=== PATIENT | female | born 1995 | race African-American/Black ===

== ENCOUNTER 2017-06-11 11:41 | Emergency (ER) | payer MEDICAID ==
[~2017-06-11] VITALS: Ht 157.5 cm; Wt 63.0 kg
[2017-06-11 15:30] VITALS: BP 116/66
[2017-06-11 15:53] LABS: CLARITY URINE CLOUDY (CLEAR); COLOR URINE YELLOW (YELLOW); KETONES URINE NEGATIVE (NEGATIVE); LEUKOCYTE ESTERASE URINE NEGATIVE (NEGATIVE); NITRITE URINE NEGATIVE (NEGATIVE); OCCULT BLOOD URINE NEGATIVE (NEGATIVE); PROTEIN URINE NEGATIVE (NEGATIVE); SPECIFIC GRAVITY URINE 1.024 (1.005-1.030); UROBILINOGEN URINE 0.2 E.U./dL (0.2-1.0)
== END 2017-06-11 18:39 | disposition left against medical advice (07) ==
LOC: ER 12:35
DX: R10.2 Pelvic and perineal pain (principal); L73.9 Follicular disorder, unspecified; N89.8 Other specified noninflammatory disorders of vagina; Z72.0 Tobacco use
CPT/HCPCS: 81001; 81025; 99283

== ENCOUNTER 2017-08-16 23:02 | Emergency (ER) | payer MEDICAID ==
[~2017-08-16] VITALS: Ht 157.5 cm; Wt 67.0 kg
[2017-08-17] MEDS ORDERED: KETOROLAC 15MG/ML VIAL IM ONE
[2017-08-17] MEDS ORDERED: ACETAMINOPHEN 500MG TABLET PO ONE
[2017-08-17 00:18] LABS: CLARITY URINE CLOUDY (CLEAR); COLOR URINE YELLOW (YELLOW); KETONES URINE NEGATIVE (NEGATIVE); LEUKOCYTE ESTERASE URINE TRACE (NEGATIVE); NITRITE URINE NEGATIVE (NEGATIVE); OCCULT BLOOD URINE NEGATIVE (NEGATIVE); PH URINE 6.5 (4.5-8.0); PROTEIN URINE NEGATIVE (NEGATIVE); SPECIFIC GRAVITY URINE 1.009 (1.005-1.030); UROBILINOGEN URINE 0.2 E.U./dL (0.2-1.0)
[2017-08-17 00:33] LABS: *AMPHETAMINES SCREEN URINE NEGATIVE (NEGATIVE); *BARBITURATES SCREEN URINE NEGATIVE (NEGATIVE); *BENZODIAZEPINES SCREEN URINE NEGATIVE (NEGATIVE); *COCAINE SCREEN URINE NEGATIVE (NEGATIVE); METHADONE URINE SCREEN NEGATIVE (NEGATIVE)
[2017-08-17 00:42] LABS: OPIATES URINE SCREEN NEGATIVE (NEGATIVE); PHENCYCLIDINE URINE SCREEN NEGATIVE (NEGATIVE)
[2017-08-17 00:46] LABS: CANNABINOID URINE SCREEN PRESUMTIVE POSITIVE (NEGATIVE)
[2017-08-17 00:55] LABS: BASOPHILS % 0.9 % (0.0-2.0); EOSINOPHILS % 1.1 % (0.0-5.0); HEMATOCRIT. 40.9 % (36.0-48.0); LYMPHOCYTES % 39.7 % (20.0-50.0); MEAN CORPUSCULAR HEMOGLOBIN 32.1 pg (28.0-32.0); MEAN CORPUSCULAR VOLUME 93.8 fL (81.0-99.0); MEAN PLATELET VOLUME 7.8 fl (7.4-10.4); MONOCYTES % 8.4 % (2.0-8.0); NEUTROPHILS % 49.9 % (40.0-76.0); PLATELET 220 x1000/uL (130-400); RED BLOOD CELL COUNT 4.36 mill/uL (4.2-5.4); RED CELL DISTRIBUTION WIDTH 13.6 % (11.6-14.6)
[2017-08-17 00:57] LABS: CHLORIDE 108 mEq/L (98-107)
[2017-08-17 01:00] LABS: PROTHROMBIN TIME 10.7 sec (9.4-11.6)
[2017-08-17 01:16] LABS: HCG SCREEN NEGATIVE
[2017-08-17] MEDS ORDERED: METRONIDAZOLE 500MG TABLET PO NR (02:00)
[2017-08-17] MEDS ORDERED: ONDANSETRON 4MG ODT PO NR (02:00)
[2017-08-17 02:10] VITALS: BP 132/90
== END 2017-08-17 02:44 | disposition home or self-care (01) ==
LOC: ER 23:02
DX: G44.209 Tension-type headache, unspecified, not intractable (principal); A59.9 Trichomoniasis, unspecified; F12.10 Cannabis abuse, uncomplicated; R79.1 Abnormal coagulation profile
CPT/HCPCS: 36415; 80053; 80305; 81003; 84703; 85025; 85610; 96372; 99284; J1885; Q0162